=== PATIENT | male | born 1985 | race Caucasian/White ===

== ENCOUNTER 2017-04-22 05:04 | Emergency (ER) | payer SELFPAY ==
[2017-04-22 05:21] VITALS: TEMP 97.7
[2017-04-22] MEDS ORDERED: KETOROLAC TROMETHAMINE INJ 30 MG/ML VIAL IM ONE (05:32)
--- NOTE | 2017-04-22 05:38 | ED.PDOC ---
History of Present Illness - General Chief Complaint: Abdominal Pain Stated Complaint: sharp pains, sweating, chills, nausea Time Seen by Provider: 04/22/17 05:32 Source: patient, family Exam Limitations: no limitations - History of Present Illness Initial Comments: the patient is a 31-year-old [place] male presenting to the emergency room secondary to acute onset right sided abdominal pain starting approximately 3 hours prior to arrival. It was associated with diaphoresis and vomiting. There is some radiation to the back on that side. No diarrhea. No syncope. No chest pain or shortness of breath. No symptoms prior. No history of any abdominal surgeries and no history of any kidney stones in the past. No urinary symptoms.the pain has been severe and constant. Timing/Duration: 1-3 hours Severity: moderate Improving Factors: nothing Worsening Factors: nothing Associated Symptoms: diaphoresis, loss of appetite, malaise, nausea/vomiting Allergies/Adverse Reactions: Allergies NO KNOWN ALLERGY Allergy (Verified 04/22/17 05:22) Home Medications: Ambulatory Orders [id number]-Kmlo-Zqbtntibis [Fioricet] 1 ea PO Q8H PRN #21 tab 04/22/17 Review of Systems - Review of Systems Constitutional: States: diaphoresis, malaise EENTM: States: no symptoms reported Respiratory: States: no symptoms reported Cardiology: States: no symptoms reported Gastrointestinal/Abdominal: States: abdominal pain, nausea, vomiting. Denies: constipation, diarrhea Genitourinary: States: no symptoms reported Musculoskeletal: States: back pain Skin: States: no symptoms reported Neurological: States: anxiety Endocrine: States: excessive sweating Hematologic/Lymphatic: States: no symptoms reported All other Systems: No Change from Baseline Past Medical History (General) - Patient Medical History Hx Asthma: No Hx Cardiac Disorders: No Hx Congestive Heart Failure: No Hx Hypertension: No Hx Diabetes: No Surgical History: no surgical history - Vaccination History Hx Tetanus, Diphtheria Vaccination: Yes - 2011 Hx Influenza Vaccination: No - Social History Hx Tobacco Use: Yes Hx Alcohol Use: Yes - occ - Female History Patient is a Female of Child Bearing Age (10 -59 yrs old): No Patient : No Family Medical History - Family History Mother Hx Family Diabetes: Yes Physical Exam - Physical Exam General Appearance: Alert, Anxious, No apparent distress Eye Exam: bilateral normal Ears, Nose, Throat: hearing grossly normal, normal ENT inspection, normal pharynx Neck: non-tender, full range of motion, supple Respiratory: chest non-tender, lungs clear, normal breath sounds, no respiratory distress, no accessory muscle use Cardiovascular/Chest: normal peripheral pulses, regular rate, rhythm, no edema Peripheral Pulses: radial,right: 2+, radial,left: 2+, dorsalis pedis,right: 2+, dorsalis pedis,left: 2+, posterior tibialis,right: 2+, posterior tibialis,left: 2+ Gastrointestinal/Abdominal: soft, other - the patient has diffuse right-sided abdominal discomfort palpation. No true rebound or peritoneal signs and source is difficult to pinpoint. No skin changes. No definite palpable masses. No bruising. Rectal Exam: deferred Back Exam: no vertebral tenderness, CVA tenderness (R) - mild Extremity: normal range of motion, non-tender, normal inspection, no pedal edema , normal capillary refill Neurologic: watch assembler II-XII nml as tested, alert, normal mood/affect, oriented x 3 Skin Exam: normal color - the patient does have some acanthosis nigricans and it does appear that he has been sweating some Comments: Vital Signs - 24 hr 04/22/17 05:15 Temperature 97.7 F Pulse Rate [ 66 left] Respiratory 20 Rate Blood Pressure 171/111 [left] O2 Sat by Pulse 97 Oximetry Progress - Progress Progress: 04/22/17 05:40 the patient is a 31-year-old male presenting with acute onset abdominal pain. the patient has been given a liter of IV fluids and a dose of Zofran and Toradol. 04/22/17 06:46 the patient is feeling much better after the treatment above. Lab work is consistent with the passage of a small kidney stone on the right. The patient will receive his full liter of IV fluids and then will be allowed to be discharged home. He needs to keep himself well hydrated to prevent further stone formation. Motrin can be used 2-3 times daily for the next 2 or 3 days with food to help reduce residual discomfort. He needs to follow-up with his primary care doctor next week. ER warnings were given for any worsening. - Results/Orders Results/Orders: Laboratory Tests 04/22/17 04/22/17 04/22/17 05:33 05:47 05:47 WBC 9.2 RBC 5.09 Hgb 14.9 Hct 44.3 MCV 87.0 MCH 29.2 MCHC 33.5 RDW 13.7 Plt Count 312 MPV 7.1 L Absolute Neuts (auto) 7.20 H Absolute Lymphs (auto) 1.50 Absolute Monos (auto) 0.40 Absolute Eos (auto) 0.10 Absolute Basos (auto) 0.00 Neutrophils % 77.8 Lymphocytes % 16.2 L Monocytes % 4.9 Eosinophils % 0.6 L Basophils % 0.5 PT 11.2 INR 0.990 PTT (SP) 29.5 Sodium Potassium Chloride Carbon Dioxide Anion Gap BUN Creatinine BUN/Creatinine Ratio Random Glucose Serum Osmolality Calcium Total Bilirubin AST ALT Alkaline Phosphatase Serum Total Protein Albumin Globulin Albumin/Globulin Ratio Amylase Lipase Urine Color Yellow Urine Appearance Sl cloudy Urine pH 5.0 Ur Specific [place] >= 1.030 Urine Protein Trace Urine Glucose (UA) Negative Urine Ketones Negative Urine Blood Small H Urine Nitrite Negative Urine Bilirubin Small H Urine Urobilinogen 0.2 Ur Leukocyte Esterase Negative Urine RBC 1-3 Urine WBC 0-1 Ur Epithelial Cells 0-1 Amorphous Sediment 3+ Urine Bacteria 0 04/22/17 05:47 WBC RBC Hgb Hct MCV MCH MCHC RDW Plt Count MPV Absolute Neuts (auto) Absolute Lymphs (auto) Absolute Monos (auto) Absolute Eos (auto) Absolute Basos (auto) Neutrophils % Lymphocytes % Monocytes % Eosinophils % Basophils % PT INR PTT (SP) Sodium 140 Potassium 3.8 Chloride 107 Carbon Dioxide 27 Anion Gap 9.8 L BUN 14 Creatinine 0.90 BUN/Creatinine Ratio 15.6 Random Glucose 124 H Serum Osmolality 281.3 Calcium 8.9 Total Bilirubin 0.5 AST 25 ALT 40 Alkaline Phosphatase 94 Serum Total Protein 8.0 Albumin 4.0 Globulin 4.0 H Albumin/Globulin Ratio 1.0 L Amylase 44 Lipase 22 Urine Color Urine Appearance Urine pH Ur Specific [place] Urine Protein Urine Glucose (UA) Urine Ketones Urine Blood Urine Nitrite Urine Bilirubin Urine Urobilinogen Ur Leukocyte Esterase Urine RBC Urine WBC Ur Epithelial Cells Amorphous Sediment Urine Bacteria Departure - Departure Clinical Impression: Ureterolithiasis Disposition: Discharge to Home or Self Care Condition: Fair Departure Forms: ED Discharge - Pt. Copy, Patient Portal Self Enrollment Instructions: DI for Kidney Stones Diet: regular diet Activity: increase activity as tolerated Prescriptions: Cgqlbvfzxnffq-Cbyg-Kyydgrxhgf [Fioricet] 1 ea PO Q8H PRN #21 tab PRN Reason: Pain Home Medications: Ambulatory Orders Yjmthmtlnyatc-Pxwd-Upgzldiuzj [Fioricet] 1 ea PO Q8H PRN #21 tab 04/22/17 Additional Instructions: The patient is a 31-year-old male presenting with right-sided abdominal and flank pain most consistent with kidney stone passage. He was given IV fluids and Toradol. Lab work is consistent with kidney stone passage. He needs to keep himself very well-hydrated prevent further stone formation. He can take ibuprofen 2-3 times daily with food for the next 2 or 3 days to help reduce any residual discomfort. He additionally will be written for Fioricet for as needed use. He does need follow-up with his primary care doctor early next week. ER warnings were given.
[2017-04-22] MEDS ORDERED: SODIUM CHLORIDE 0.9% 1000ML 1,000 ML IVS ONE (05:39)
[2017-04-22] MEDS ORDERED: ONDANSETRON ODT 8 MG TAB SL SCH (06:00)
--- NOTE | 2017-04-22 06:26 | RAD ---
EXAM DESCRIPTION: Abdomen Series CLINICAL HISTORY: acute severe right sided abd pain, vomit x2 COMPARISON: None FINDINGS: Frontal view of the chest and supine and upright images of the abdomen were submitted. Cardiac silhouette is within normal limits. There is no focal parenchymal or pleural disease. There is no free air in the abdomen. There is no evidence of bowel obstruction. IMPRESSION: No acute abnormalities. Electronically signed by: Chilo Gramajo MD 04/22/2017 6:26 AM CDT
[2017-04-22 06:40] VITALS: O2SAT 99
[2017-04-22 07:54] VITALS: BP 149/87
== END 2017-04-22 07:45 | disposition home or self-care (01) ==
LOC: ER 05:04
DX: N20.1 Calculus of ureter (principal); Z87.891 Personal history of nicotine dependence
CPT/HCPCS: 36415; 74020; 80053; 81001; 82150; 83690; 85025; 85610; 85730; J1885; J7030

== ENCOUNTER → 2017-05-23 | Outpatient (CLI) | payer SELFPAY | END | disposition home or self-care (01) | LOC: LAB.O 11:12 | PROVIDERS: ATTEND Family Medicine | DX: N20.0 Calculus of kidney (principal) ==